=== PATIENT | male | born 2000 | race Caucasian/White ===

== ENCOUNTER 2022-09-10 19:59 | Emergency (ER) | payer OTHER ==
[~2022-09-10] VITALS: Ht 172.7 cm; Wt 86.2 kg
--- NOTE | 2022-09-10 19:59 | NUR ---
PT CINDY SHEARER, PREBOOK. TAKEN TO ER CHAIR
[2022-09-10 20:12] VITALS: BP 140/73
--- NOTE | 2022-09-10 21:06 | NUR ---
PATIENT BIB [employer]. PATIENT EXAMINED BY DR. ORTIZ. PATIENT MEDICALLY CLEARED AND RELEASED IN CUSTODY IN STABLE CONDITION. ORIGINAL PRE-BOOK FORM GIVEN TO OFFICER SHARYN, #[id number].
== END 2022-09-10 21:06 ==
LOC: MED 19:59
DX: Z02.89 Encounter for other administrative examinations (principal); V49.88XA Car occupant (driver) (passenger) injured in other specified transport accidents, initial encounter; Y93.89 Activity, other specified; Y92.89 Other specified places as the place of occurrence of the external cause; Y99.8 Other external cause status
CPT/HCPCS: 99283